=== PATIENT | female | born 1995 | race Caucasian/White ===

== ENCOUNTER 2020-12-10 13:31 | Emergency (ER) | payer BC, SELFPAY ==
--- NOTE | 2020-12-10 13:38 | ED.NAVMDI ---
HPI - Nausea/Vomiting/Diarrhea General Chief complaint: Nausea/Vomiting/Diarrhea Stated complaint: nausea and stomach pain Time Seen by Provider: 12/10/20 13:38 Source: patient and RN notes reviewed History of Present Illness HPI Narrative: Patient is a 25-year-old female who presents the urgent care with complaints of nausea, vomiting and abdominal cramping. Patient states is been going on since November 25 and today was just a bad day . Patient states that she is always had a sensitive stomach but recently it is increased in sensitivity. Patient states that she has been eating things such as vegetables, chicken and fruits but has not been eating a bland diet. Patient states that she vomited just a few hours ago and has had 3 loose stools today. Patient states that she has been taking ibuprofen without any abdominal relief. Also states that she has been taking Caitlyn-Burkett. Patient states that her father does have IBS and has had like symptoms. Patient denies of any blood in the urine. States that she has a doctor's appointment tomorrow with a new PCP. Patient states she is able to keep down some foods and water. No other acute complaints. Patient states she is passing gas and moving bowels. No acute distress noted. Patient aware of the plan of care. Some parts of this dictation were generated by voice recognition software and may contain typographical and/or grammatical inaccuracies. Related Data Home Medications Medication Instructions Recorded Confirmed albuterol sulfate [ProAir HFA] 2 puff INHALATION QID PRN 12/10/20 12/10/20 norethindrone ac-eth estradiol 1 tablet PO DAILY 12/10/20 12/10/20 [Loestrin 1.5/30 (21)] Allergies Allergy/AdvReac Type Severity Reaction Status Date / Time No Known Allergies Allergy Verified 12/10/20 13:58 Review of Systems Review of Systems: Narrative: CONSTITUTIONAL: Denies fever, chills, or sweats. EYES: Denies visual changes, redness, or discharge. ENT: Denies rhinorrhea, congestion, sore throat, or otalgia. CARDIOVASCULAR: Denies chest pain, palpitations, or edema. RESPIRATORY: Denies cough or dyspnea. GASTROINTESTINAL: Reports of abdominal cramping, nausea, vomiting and loose stools GENITOURINARY: Denies dysuria or hematuria. SKIN: Denies rash or itching. MUSCULOSKELETAL: Denies back pain, joint pain, or myalgia. NEUROLOGIC: Denies headache, numbness, or weakness. All other systems reviewed are negative, except as documented in HPI. PMFSH Comments At the time of my signature, I reviewed and agree with the nursing past medical, surgical, social, and family history. There is no relevant family history pertinent to the patient complaint. Exam Narrative: Exam Narrative: GENERAL: This is a well-nourished, well-developed patient, in no apparent distress. HEAD: normocephalic, atraumatic. EYES: PERRL. Sclera clear/white. Vision is grossly intact. EARS: External ears normal NOSE: External nose normal with no obvious nasal discharge, nares without redness, no rhinorrhea. THROAT: Mucous membranes moist NECK: Neck supple CARDIOVASCULAR: Regular rate and rhythm without murmurs, gallops, or rubs. RESPIRATORY: Clear to auscultation. Breath sounds equal bilaterally. No wheezes, rales, or rhonchi. GASTROINTESTINAL: Abdomen soft, mild diffuse abdominal tenderness, nondistended. Bowel sounds are active. No guarding. SKIN: warm, intact with no suspicious lesions or rash, good texture and turgor. NEURO: awake, alert, and oriented to person, place and time. There were no obvious focal neurologic abnormalities. EXTREMITIES: No clubbing, cyanosis, or edema. Course Vital Signs Vital signs: Vital Signs Temperature 98.0 F 12/10/20 13:44 Pulse Rate 100 12/10/20 13:44 Respiratory Rate 20 12/10/20 13:44 Blood Pressure 154/96 H 12/10/20 13:44 Pulse Oximetry 99 12/10/20 13:44 Temperature 98.0 F 12/10/20 13:44 Pulse Rate 100 12/10/20 13:44 Respiratory Rate 20 12/10/20
[2020-12-10 13:44] VITALS: BP 154/96; PULSE 100; RESP 20; TEMP 36.7; O2SAT 99
== END 2020-12-10 14:02 | disposition home or self-care (01) ==
PROVIDERS: Emergency Provider Nurse Practitioner Family
DX: R11.2 Nausea with vomiting, unspecified (principal); J45.909 Unspecified asthma, uncomplicated
CPT/HCPCS: 99213; G0463